=== PATIENT | female | born 1990 | race Caucasian/White ===

== ENCOUNTER → 2016-04-14 | Outpatient (CLI) | payer BC ==
--- NOTE | 2016-04-14 11:41 | FL ---
EXAMINATION TYPE: FL UGI air w small bowel DATE OF EXAM: 04/14/2016 10:57 AM COMPARISON: NONE HISTORY: Dysphagia, food getting stuck TECHNIQUE: A double contrast UGI study is performed with small bowel follow through. FINDINGS: Grinder Set Up Operator Jig image of the abdomen shows no gross abnormality. The esophagus shows normal motility and emptying into the stomach. No evidence of hiatal hernia or s tricture noted. Swallowing mechanism is normal. No hiatal hernia or gastroesophageal reflux The stomach shows normal distensibility, peristalsis, and mucosal folds. No evidence of any mass or ulcer disease. No significant esophageal reflux was seen during real time performance of this study. The duodenal bulb and sweep are unremarkable. The small bowel study shows normal transit to the colon. There is normal mucosal fold pattern throug hout the small bowel. There is no evidence of any stricture or filling defect noted. The terminal i leum is unremarkable. IMPRESSION: Normal upper GI study and small bowel follow through.
== END | disposition home or self-care (01) ==
LOC: RADFLMAIN 08:53
PROVIDERS: ATTEND Family Medicine
DX: R13.10 Dysphagia, unspecified (principal)
CPT/HCPCS: 74249; 81025

== ENCOUNTER → 2016-10-27 | Outpatient (CLI) | payer BC ==
--- NOTE | 2016-10-28 07:13 | US ---
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 GLAND SIZE: Right Lobe: 6.2 x 1.9 x 2.1 cm Overall Parenchyma: homogenous Left Lobe: 5.5 x 1.6 x 1.9 cm Overall Parenchyma: homogeneous Isthmus Thickness: 0.2 cm NODULES RIGHT: # of nodules measured on right: 2 1. 1.8 X 1.2 x 2.1 cm anechoic mixed nodule at the mid pole with well-defined margins. This nodul e is wider than tall and shows no intranodular vascularity. Prior size: 2.6 x 2.2 x 0.8 cm 2. 1.3 X 1.0 x 1.3 cm hypoechoic mixed nodule at the mid pole with well-defined margins. This nodul e is wider than tall and shows no intranodular vascularity. Prior size: 1.0 x 1.1 x 0.8 cm LEFT: # of nodules measured on left: 1 1. 1.3 X 0.9 x 1.1 cm isoechoic solid nodule at the mid pole with well-defined margins. This nodul e is wider than tall and shows intranodular vascularity. Prior size: 1.2 x 0.9 x 1.1 cm ISTHMUS: # of nodules measured in the isthmus: 0 Bilateral neck scanned, no evidence of lymphadenopathy. IMPRESSION: Findings are similar to prior exam.
== END | disposition home or self-care (01) ==
LOC: RADUSWWP 16:20
PROVIDERS: ATTEND Internal Medicine Endocrinology, Diabetes & Metabolism
DX: E04.2 Nontoxic multinodular goiter (principal)
CPT/HCPCS: 36415; 76536; 84439; 84443; 84480

== ENCOUNTER → 2018-01-16 | Outpatient (CLI) | payer BC ==
[2018-01-16 11:00] LABS: HCT 36.9 % (34.0-46.0); HGB 12.8 gm/dL (11.4-16.0); MCH 32.4 pg (25.0-35.0); MCHC 34.7 g/dL (31.0-37.0); MCV 93.5 fL (80.0-100.0); Mean Platelet Volume 7.1; Platelet Count 217 k/uL (150-450); RBC 3.95 m/uL (3.80-5.40); RDW 12.9 % (11.5-15.5); WBC 11.1 k/uL (3.8-10.6)
== END | disposition home or self-care (01) ==
LOC: LABWHC1 09:23
PROVIDERS: ATTEND Obstetrics & Gynecology
DX: Z34.82 Encounter for supervision of other normal pregnancy, second trimester (principal)
CPT/HCPCS: 36415; 82950; 85027

== ENCOUNTER 2018-04-25 02:25 | Inpatient (IN) | payer BC ==
--- NOTE | 2018-04-24 10:27 | P.HPOB ---
History of Present Illness H&P Date: 04/24/18 Chief Complaint: Patient is requesting elective induction This patient is a pleasant 27-year-old 4 para 3 female estimated date of confinement 04/30/2018 estimated gestational age 39-2/7 weeks who presents to labor and delivery for requested induction of labor. Patient's care has been uncomplicated. Patient is uncomfortable is requesting delivery at this time. Review of Systems Gastrointestinal: Reports heartburn Genitourinary: Reports Past Medical History Past Medical History: No Reported History History of Any Multi-Drug Resistant Organisms: None Reported Additional Past Surgical History / Comment(s): Biopsy left ear. Subtotal thyroidectomy. Past Anesthesia/Blood Transfusion Reactions: No Reported Reaction Past Psychological History: No Psychological Hx Reported Smoking Status: Never smoker Past Alcohol Use History: None Reported Past Drug Use History: None Reported - Past Family History Mother Family Medical History: No Reported History Medications and Allergies Home Medications Medication Instructions Recorded Confirmed Type Gxi-Waqj-Wlboc Acid 1 tab PO DAILY 11/13/13 12/08/15 History [-U Capsule] Acyclovir 400 mg PO TID 06/03/14 12/08/15 History Acetaminophen-Codeine 300-30mg 1 each PO Q4HR PRN #30 tab 12/09/15 Rx [Tylenol w/codeine #3] Ibuprofen [Motrin] 600 mg PO Q6HR PRN #40 tab 12/09/15 Rx Allergies Allergy/AdvReac Type Severity Reaction Status Date / Time No Known Allergies Allergy Verified 12/08/15 03:42 Exam - OBG Physical Exam Abdomen: bowel sounds normal, no diffuse tenderness, no bruit present, no guarding noted, no hepatomegaly, no splenomegaly, no mass Vulva: both: normal Vagina: normal moisture, no discharge Cervix: no lesion (Cervix in the office was 2 cm dilated and uneffaced.), no discharge Uterus: enlarged (Fundal height is 37 cm) Results blood work shows she is A positive, rubella immune, RPR nonreactive, hepatitis B negative, HIV is negative, Glucola was normal, group B strep was negative. Ultrasounds have been normal. Assessment and Plan Assessment: This is a pleasant 27-year-old 4 para 3 female 39-2/7 weeks gestation who is admitted to labor and delivery for elective induction of labor. Plan is induction of labor and anticipate vaginal delivery. (1) 39 weeks gestation of Status: Acute Code(s): Z3A.39 - 39 WEEKS GESTATION OF SNOMED Code( s): 39447281 (2) Elective induction of labor planned Status: Acute Code(s): GAH1088 - SNOMED Code(s): 962172176
[2018-04-25 02:37] VITALS: BMI 34.0
[2018-04-25] MEDS ORDERED: LACTATED RINGERS 1,000 ML IV SCH (02:57)
[2018-04-25] MEDS ORDERED: LIDOCAINE 0.5% (PF) 5 MG/ML (50 ML SDV) SQ PRN (02:57)
[2018-04-25] MEDS ORDERED: CARBOPROST TROMETHAMINE 250 MCG/ML 1 ML AMP IM PRN (02:57)
[2018-04-25] MEDS ORDERED: METHYLERGONOVINE 0.2 MG/ML 1 ML AMP IM PRN (02:57)
[2018-04-25] MEDS ORDERED: TERBUTALINE 1 MG/ML VIAL SQ PRN (02:57)
[2018-04-25] MEDS ORDERED: OXYTOCIN 10 UNIT/ML 1 ML VIAL IM PRN (02:57)
[2018-04-25] MEDS ORDERED: OXYTOCIN 20 UNITS/1000 ML NS 1,000 ML IV SCH (02:57)
[2018-04-25 03:43] LABS: Basophils % (A) 0 %; Eosinophils # (A) 0.3 k/uL (0-0.7); Eosinophils % (A) 3 %; HCT 37.3 % (34.0-46.0); HGB 12.9 gm/dL (11.4-16.0); Lymphocytes # (A) 2.3 k/uL (1.0-4.8); Lymphocytes % (A) 21 %; MCH 31.8 pg (25.0-35.0); MCHC 34.6 g/dL (31.0-37.0); MCV 91.9 fL (80.0-100.0); Mean Platelet Volume 7.1; Monocytes # (A) 0.4 k/uL (0-1.0); Monocytes % (A) 4 %; Neutrophils # (A) 7.4 k/uL (1.3-7.7); Neutrophils % (A) 70 %; Platelet Count 185 k/uL (150-450); RBC 4.06 m/uL (3.80-5.40); WBC 10.6 k/uL (3.8-10.6)
[2018-04-25] MEDS ORDERED: diphenhydrAMINE 50 MG/ML 1 ML VIAL IVP PRN ×2 (03:54)
[2018-04-25] MEDS ORDERED: diphenhydrAMINE 50 MG CAP PO PRN (03:54)
[2018-04-25] MEDS ORDERED: SIMETHICONE 80 MG CHEWABLE PO PRN (03:54)
[2018-04-25] MEDS ORDERED: MEASLES-MUMPS-RUBELLA VACC/PF 12,500 UNIT/0.5 ML VIAL SQ ONE (03:54)
[2018-04-25] MEDS ORDERED: ZOLPIDEM 5 MG TAB PO PRN (03:54)
[2018-04-25] MEDS ORDERED: diphenhydrAMINE 25 MG CAP PO PRN (03:54)
[2018-04-25] MEDS ORDERED: WITCH HAZEL 1 EACH MED..PAD TOPICAL PRN (03:54)
[2018-04-25] MEDS ORDERED: HYDROCORTISONE 2.5% RECTAL CREAM 30 GM TUBE RECTAL PRN (03:54)
[2018-04-25] MEDS ORDERED: LANOLIN CREAM 5 GM TUBE TOPICAL PRN (03:54)
[2018-04-25] MEDS ORDERED: BENZOCAINE/MENTHOL SPRAY 1 GM/SPRAY AEROSOL TOPICAL PRN (03:54)
--- NOTE | 2018-04-25 03:56 | P.HPOB ---
History of Present Illness H&P Date: 04/25/18 Chief Complaint: Intrauterine at term: Active labor [place] is a 26-year-old at 39 weeks gestation who arrives in active labor. She arrives complaining contractions every 3 minutes this started approximately midnight and that they were very painful. She was examined and noted be dilated to 7-8 cm 90% effaced and -1 station. I did come immediately in the hospital to evaluate her. Artificial rupture membranes was performed and clear fluid was noted. If category 1 tracing was noted. She denies any problems with the and relates that she has no other medical problems. On physical exam vital signs are stable and afebrile. Heart regular, lungs clear, extremities without pain. Abdomen soft gravid uterus is noted. Past Medical History Past Medical History: No Reported History History of Any Multi-Drug Resistant Organisms: None Reported Additional Past Surgical History / Comment(s): Biopsy left ear. Subtotal thyroidectomy. Past Anesthesia/Blood Transfusion Reactions: No Reported Reaction Past Psychological History: No Psychological Hx Reported Smoking Status: Never smoker Past Alcohol Use History: None Reported Past Drug Use History: None Reported - Past Family History Mother Family Medical History: No Reported History Medications and Allergies Home Medications Medication Instructions Recorded Confirmed Type Wjq-Fdpq-Rrjfr Acid 1 tab PO DAILY 11/13/13 04/25/18 History [-U Capsule] Allergies Allergy/AdvReac Type Severity Reaction Status Date / Time No Known Allergies Allergy Verified 04/25/18 02:32 Exam Osteopathic Statement: *. No significant issues noted on an osteopathic structural exam other than those noted in the History and Physical/Consult. Vital Signs Temp Pulse Resp BP Pulse Ox 04/25/18 02:33 98.3 F 96 16 138/78 98 Intake and Output 04/24/18 04/24/18 04/25/18 14:59 22:59 06:59 Other: Weight 89.811 kg - OBG Physical Exam Breast: both: normal (no masses) Abdomen: bowel sounds normal, no diffuse tenderness, no bruit present, no guarding noted, no hepatomegaly, no splenomegaly, no mass Vulva: both: normal Vagina: normal moisture, no discharge Cervix: no lesion, no discharge Uterus: normal size, normal contour Adnexa: both: normal Anus/Rectum: normal perianal skin, no rectal mass, no hemorrhoids, heme negative Results Result Diagrams: 04/25/18 02:50
--- NOTE | 2018-04-25 03:57 | P.PROBDLV ---
Vaginal Delivery Note - . Vaginal Delivery Note: Patient progressed complete and pushing with spontaneous vaginal delivery of a viable female over a first repair laceration. Falling deliver the head a nuchal cord 1 was noted that the baby was delivered through the nuchal cord. Mouth nares were then bulb suctioned and baby was placed on mother's abdomen where the umbilical cord was allowed to pulsate for 30 seconds prior to clamping and cutting. Nursery personnel was present to assume care. Placenta was then delivered intact and Pitocin was added to the IV. Laceration was then repaired with 3-0 Vicryl in running fashion following 1% Xylocaine for analgesia. scores were 9 and 9 at one and 5 minutes respectively and the weight was 7 lbs. 7 oz. Both mother and baby are stable following delivery.
[2018-04-25] MEDS: IBUPROFEN 600 MG TAB PO PRN ×3 (04:14→16:32)
[2018-04-25] MEDS: ACETAMINOPHEN TAB 325 MG TAB PO PRN ×3 (05:09→20:30)
[2018-04-25] MEDS: SENNOSIDES-DOCUSATE SODIUM 1 EACH TAB PO SCH ×2 (11:12→16:36)
[2018-04-26] MEDS: IBUPROFEN 600 MG TAB PO PRN (04:57)
--- NOTE | 2018-04-26 06:21 | P.PNOBGVD ---
Subjective - Subjective Patient reports: Reports appetite normal, Reports voiding normally, Reports pain well controlled, Reports ambulating normally : doing well Objective - Latest Vital Signs Latest vital signs: Vital Signs Temp Pulse Resp BP 04/26/18 00:00 98.3 F 81 16 123/70 04/25/18 20:00 98.3 F 77 16 128/73 04/25/18 16:00 98.7 F 70 15 122/74 04/25/18 12:00 99 F 82 15 128/78 04/25/18 07:52 98.7 F 67 16 117/73 - Exam Lungs: bilateral: normal Chest: Normal S1, Normal S2 Extremities: Present: normal Abdomen: Present: normal appearance, soft Uterus: Present: normal, firm Assessment and Plan Assessment: Post day #1. Patient is resting without complaints and wishes to go home. Vital signs are stable she is afebrile. Uterus is firm nontender she's having normal lochia. My impression this is a normal course. Plan is to continue routine care and discharge home later today. (1) 39 weeks gestation of Current Visit: No Status: Acute Code(s): Z3A.39 - 39 WEEKS GESTATION OF SNOMED Code(s): 87647488 (2) Elective induction of labor planned Current Visit: No Status: Acute Code(s): RMC1909 - SNOMED Code(s): 229008247
--- NOTE | 2018-04-26 06:25 | P.DS ---
Providers Date of admission: 04/25/18 02:25 Expected date of discharge: 04/26/18 Attending physician: Ross Lam Primary care physician: Stated None - Discharge Diagnosis(es) (1) 39 weeks gestation of Current Visit: No Status: Acute (2) Elective induction of labor planned Current Visit: No Status: Acute Hospital Course: Please see dictated H&P for intimate details of this patient's admission. Brief summary this is a pleasant 27-year-old multiparous patient admitted to labor and delivery in active labor. Patient quickly goes on have a vaginal delivery viable female infant. Please see dictated delivery note. day #1 patient without complaints she wishes to go home. Patient's felt be stable for discharge home follow up with me in 6 weeks. Procedures: Normal spontaneous vaginal delivery Patient Condition at Discharge: Good Plan - Discharge Summary New Discharge Prescriptions: New Ibuprofen [Motrin] 600 mg PO Q6HR PRN #40 tab PRN Reason: Mild Pain Or Fever >= 100.5 No Action Cbt-Zpii-Afhqr Acid [-U Capsule] 1 tab PO DAILY Discharge Medication List Vfu-Ohtf-Nnqvw Acid [-U Capsule] 1 tab PO DAILY 11/13/13 [ History] Ibuprofen [Motrin] 600 mg PO Q6HR PRN #40 tab 04/26/18 [Rx] Follow up Appointment(s)/Referral(s): Ross Lam MD [STAFF PHYSICIAN] - 06/06/18 2:30 pm Patient Instructions/Handouts: Vaginal Delivery (DC) Activity/Diet/Wound Care/Special Instructions: No intercourse or anything per vagina for 6 weeks. Please call if any fever, chills, excessive vaginal bleeding, and/or abdominal pain. Discharge Disposition: HOME SELF-CARE
[2018-04-26 07:49] LABS: Basophils % (A) 0 %; Eosinophils # (A) 0.3 k/uL (0-0.7); Eosinophils % (A) 4 %; HCT 35.6 % (34.0-46.0); HGB 12.2 gm/dL (11.4-16.0); Lymphocytes # (A) 2.2 k/uL (1.0-4.8); Lymphocytes % (A) 23 %; MCHC 34.2 g/dL (31.0-37.0); MCV 93.7 fL (80.0-100.0); Mean Platelet Volume 7.1; Monocytes # (A) 0.4 k/uL (0-1.0); Monocytes % (A) 4 %; Neutrophils # (A) 6.9 k/uL (1.3-7.7); Neutrophils % (A) 69 %; Platelet Count 182 k/uL (150-450); RDW 13.1 % (11.5-15.5)
[2018-04-26] MEDS: SENNOSIDES-DOCUSATE SODIUM 1 EACH TAB PO SCH (10:33)
[2018-04-26 10:53] VITALS: BP 121/72; PULSE 66; RESP 18; TEMP 98.4
== END 2018-04-26 12:33 | disposition home or self-care (01) | DRG 807 ==
LOC: 4FBP 02:25
PROVIDERS: ADMIT Obstetrics & Gynecology; ATTEND Obstetrics & Gynecology
PROC: 10E0XZZ Delivery of Products of Conception, External Approach (ICD-10-PCS; principal; 2018-04-25)
PROC: 0HQ9XZZ Repair Perineum Skin, External Approach (ICD-10-PCS; 2018-04-25)
DX: O69.81X0 Labor and delivery complicated by cord around neck, without compression, not applicable or unspecified (principal); Z37.0 Single live birth; O99.62 Diseases of the digestive system complicating childbirth; R12 Heartburn; O70.0 First degree perineal laceration during delivery; Z3A.39 39 weeks gestation of pregnancy
CPT/HCPCS: 85025; 86850; 86900; 86901

== ENCOUNTER → 2018-12-25 | Outpatient (CLI) | payer BC ==
--- NOTE | 2018-12-25 10:49 | US ---
EXAMINATION TYPE: US thyroid st tissue head/neck DATE OF EXAM: 12/25/2018 COMPARISON: 10/27/2016 CLINICAL HISTORY: E04.2 MULTINODULAR GOITER. Patient states having right thyroid removed x 1.5 years ago GLAND SIZE: Right Lobe: Surgically absent Left Lobe: 4.9 x 2.2 x 2.0 cm Overall Parenchyma: homogeneous Isthmus Thickness: 0.5 cm NODULES RIGHT: Surgically removed LEFT: # of nodules measured on left: 2 1. 1.9 X 1.6 x 1.7 cm hyperechoic solid nodule at the lower pole with well-defined margins. This n odule is taller than wide and shows intranodular vascularity. Prior size: 1.3 x 0.9 x 1.1 cm 2. 1.4 X 1.1 x 1.1 cm mixed nodule at the mid pole with well-defined margins. This nodule is tall a s wide and shows no intranodular vascularity. Prior size: No prior ISTHMUS: # of nodules measured in the isthmus: 1 1. 0.5 X 0.3 x 0.3 cm hypoechoic nodule at the mid pole with well-defined margins. This nodule is wide as tall and shows no intranodular vascularity. Prior size: Partially present on the prior exam although one isn't images only obtained. This part ially measures 0.3 cm on the prior and would be unchanged in transverse dimension in comparison to th ousand 17. Bilateral neck scanned, no evidence of lymphadenopathy. IMPRESSION: Interval growth of the hyperechoic left thyroid nodule measuring 1.9 cm. Fine-needle aspi ration is recommended.
[2018-12-25 11:13] LABS: T4, Free (Free Thyroxine) 0.8 ng/dL (0.78-2.19)
== END | disposition home or self-care (01) ==
LOC: RADUSWWP 09:34
PROVIDERS: ATTEND Internal Medicine Endocrinology, Diabetes & Metabolism
DX: E04.2 Nontoxic multinodular goiter (principal)
CPT/HCPCS: 76536; 84439; 84443

== ENCOUNTER → 2019-03-29 | Outpatient (CLI) | payer BC ==
[2019-03-29 17:05] LABS: T4, Free (Free Thyroxine) 1.1 ng/dL (0.80-1.80)
== END | disposition home or self-care (01) ==
LOC: LABWHC1 10:48
PROVIDERS: ATTEND Internal Medicine Endocrinology, Diabetes & Metabolism
DX: E04.2 Nontoxic multinodular goiter (principal)
CPT/HCPCS: 36415; 84439; 84443

== ENCOUNTER → 2021-05-20 | Outpatient (CLI) | payer BC ==
--- NOTE | 2021-05-21 08:05 | US ---
EXAMINATION TYPE: US thyroid st tissue head/neck DATE OF EXAM: 05/20/2021 COMPARISON: CLINICAL HISTORY: E04.2 Goiter. Not on thyroid meds. Right lobe surgically removed. GLAND SIZE: Right Lobe: Surgically absent cm Left Lobe: cm Overall Parenchyma: homogeneous Isthmus Thickness: cm NODULES RIGHT: Surgically absent LEFT: # of nodules measured on left: 2 1. 2.0 X 2.0 x 1.1 cm, lower mid, solid or almost completely solid, hyperechoic nodule, which is wi mikey than tall, with smooth margins, without echogenic foci. TR 3 Prior size: 1.9 x 1.6 x 1.7 cm 2. 3.3 X 2.6 x 2.1 cm, mid , mixed cystic and solid, hypoechoic nodule, which is wider than tall, with smooth margins, without echogenic foci. TR 3 Prior size: 1.4 x 1.1 x 1.1 cm ISTHMUS: # of nodules measured in the isthmus: 1 Isthmus appears heterogenous 1. 0.4 X 0.4 x 0.3 cm solid or almost completely solid, hypoechoic nodule, which is wider than tall , with smooth margins, without echogenic foci. Prior size: 0.5 x 0.3 x 0.3 cm Bilateral neck scanned, no evidence of lymphadenopathy. IMPRESSION: 1. Left and right mildly suspicious nodules increased in size from prior examination. Biopsy is recom mended. 2017 ACR TI-RADS LEVEL: *Highest TI-RADS level nodule reported
== END | disposition home or self-care (01) ==
LOC: RADUSWWP 16:41
PROVIDERS: ATTEND Internal Medicine Endocrinology, Diabetes & Metabolism
DX: E04.2 Nontoxic multinodular goiter (principal)
CPT/HCPCS: 76536

== ENCOUNTER → 2021-05-20 | Outpatient (CLI) | payer BC ==
[2021-05-20 23:28] LABS: HCT 41.9 % (37.2-46.3); HGB 13.9 g/dL (12.0-15.0); MCH 30.8 pg (27.0-32.0); MCHC 33.2 g/dL (32.0-37.0); MCV 92.7 fL (80.0-97.0); Mean Platelet Volume 10.6 fL (9.5-12.2); NRBC Per 100 WBC 0 /100 WBCS (0.0-0.0); Platelet Count 240 X 10*3/uL (140-440); RBC 4.52 X 10*6/uL (4.10-5.20); RDW 11.6 % (11.5-14.5); WBC 8.97 X 10*3/uL (4.50-10.00)
[2021-05-20 23:57] LABS: T4, Free (Free Thyroxine) 0.95 ng/dL (0.800-1.800); Testosterone 50.7 ng/mL (9.01-47.94)
== END | disposition home or self-care (01) ==
LOC: LABWHC1 16:31
PROVIDERS: ATTEND Internal Medicine Endocrinology, Diabetes & Metabolism
DX: E03.9 Hypothyroidism, unspecified (principal); E34.9 Endocrine disorder, unspecified; D64.9 Anemia, unspecified; E55.9 Vitamin D deficiency, unspecified; E53.9 Vitamin B deficiency, unspecified; E04.2 Nontoxic multinodular goiter
CPT/HCPCS: 36415; 82306; 82607; 84403; 84439; 84443; 84481; 85027

== ENCOUNTER → 2022-02-01 | Outpatient (CLI) | payer BC ==
[2022-02-01 23:00] LABS: HCT 44.7 % (37.2-46.3); HGB 14.8 g/dL (12.0-15.0); MCH 31.2 pg (27.0-32.0); MCHC 33.1 g/dL (32.0-37.0); MCV 94.1 fL (80.0-97.0); Mean Platelet Volume 10.5 fL (9.5-12.2); NRBC Per 100 WBC 0 /100 WBCS (0.0-0.0); Platelet Count 267 X 10*3/uL (140-440); RBC 4.75 X 10*6/uL (4.10-5.20); WBC 7.62 X 10*3/uL (4.50-10.00)
[2022-02-02 00:16] LABS: ALT 33 U/L (8-44); AST 23 U/L (13-35); African American GFR (CKD) 104.9 (60.0-200.0); Albumin 4.6 g/dL (3.8-4.9); Alkaline Phosphatase 83 U/L (41-126); BUN/Creat Ratio 17.52 Ratio (12.00-20.00); Carbon Dioxide 27.1 mmol/L (20.0-27.5); Chloride 101 mmol/L (96-109); Globulin 2.9 g/dL (1.6-3.3); Glucose 86 mg/dL (70-110); Non-African American GFR(CKD) 90.5 (60.0-200.0); Potassium 4.6 mmol/L (3.5-5.5); Sodium 139 mmol/L (135-145); Total Bilirubin <0.15 mg/dL (0.30-1.20); Total Protein 7.5 g/dL (6.2-8.2)
== END | disposition home or self-care (01) ==
LOC: LABWHC1 16:17
PROVIDERS: ATTEND Family Medicine
DX: I10 Essential (primary) hypertension (principal); E03.9 Hypothyroidism, unspecified; E55.9 Vitamin D deficiency, unspecified; D64.9 Anemia, unspecified
CPT/HCPCS: 36415; 80053; 82306; 82728; 84439; 84443; 84481; 85027

== ENCOUNTER → 2022-02-01 | Outpatient (CLI) | payer BC ==
--- NOTE | 2022-02-01 22:15 | CT ---
EXAMINATION TYPE: CT abdomen pelvis wo con DATE OF EXAM: 02/01/2022 HISTORY: Flank pain right side. Hx of kidney stones CT DLP: 966 mGycm. Automated Exposure Control for Dose Reduction was Utilized. TECHNIQUE: CT scan of the abdomen and pelvis is performed without oral or IV contrast. COMPARISON: NONE FINDINGS: Within the limitations of a non-contrast study, the following observations are made. LUNG BASES: No significant abnormality is appreciated. LIVER/GB: Contracted gallbladder. PANCREAS: No significant abnormality is seen. SPLEEN: No significant abnormality is seen. ADRENALS: No significant abnormality is seen. KIDNEYS: Approximately 4 scattered small left renal calculi measuring up to 4 mm in size. Approximate ly 6 right renal calculi measuring up to 7 mm in size. No hydronephrosis or obstructing ureteral calc christ seen bilaterally. No intraluminal calculi seen in poorly distended bladder. BOWEL: Normal-appearing appendix from base of cecum. Debris-filled stomach suggests recent meal inges tion which correlates with contracted gallbladder. No suspicious polyp or large bowel dilatation. GENITAL ORGANS: Anteverted uterus. LYMPH NODES: No greater than 1cm abdominal or pelvic lymph nodes are appreciated. OSSEOUS STRUCTURES: No significant abnormality is seen. OTHER: Tiny fat-containing umbilical hernia. IMPRESSION: Bilateral nonobstructing renal calculi. No hydronephrosis or obstructing ureteral calculi bilaterally. No acute findings are evident to account for patient's right-sided flank pain.
== END | disposition home or self-care (01) ==
LOC: RADCTMAIN 16:36
PROVIDERS: ATTEND Urology
DX: N20.0 Calculus of kidney (principal)
CPT/HCPCS: 74176

== ENCOUNTER → 2023-01-05 | Outpatient (CLI) | payer BC ==
[2023-01-05 20:54] LABS: ALT 30 U/L (8-44); AST 20 U/L (13-35); Albumin 4.6 d/dL (3.8-4.9); Albumin/Globulin Ratio 1.53 Ratio (1.60-3.17); Alkaline Phosphatase 82 U/L (41-126); BUN/Creat Ratio 16.56 Ratio (12.00-20.00); Blood Urea Nitrogen 14.9 mg/dL (9.0-27.0); Calcium 9.3 mg/dL (8.7-10.3); Carbon Dioxide 23.7 mmol/L (21.6-31.8); Chloride 101 mmol/L (96-109); Glucose 92 mg/dL (70-110); Potassium 4.1 mmol/L (3.5-5.5); Sodium 137 mmol/L (135-145); T4, Free (Free Thyroxine) 1.26 ng/dL (0.80-1.80); Total Bilirubin 0.3 mg/dL (0.3-1.2); Total Protein 7.6 d/dL (6.2-8.2)
[2023-01-06 05:50] LABS: HCT 41.8 % (37.2-46.3); HGB 14.1 d/dL (12.0-15.0); MCH 30.7 pg (27.0-32.0); MCHC 33.7 d/dL (32.0-37.0); MCV 91.1 FL (80.0-97.0); Mean Platelet Volume 10.2 FL (9.5-12.2); NRBC Per 100 WBC 0 X 10*3/uL (0.00-0.01); Platelet Count 234 X 10*3/uL (140-440); RBC 4.59 X 10*6/uL (4.10-5.20); RDW 11.7 % (11.5-14.5); WBC 6.56 X 10*3/uL (4.50-10.00)
== END | disposition home or self-care (01) ==
LOC: LABWHC1 12:26
DX: I10 Essential (primary) hypertension (principal); E03.9 Hypothyroidism, unspecified; D64.9 Anemia, unspecified; E55.9 Vitamin D deficiency, unspecified
CPT/HCPCS: 36415; 80053; 82306; 82728; 84439; 84443; 84481; 85027